=== PATIENT | male | born 1960 ===

== ENCOUNTER 2023-12-15 14:46 | Outpatient (CLI) | payer OTHER, SELFPAY ==
[2023-12-15 15:20] LABS: Basophils Absolute Auto 0.03 K/mm3 (0.00-0.10); Basophils Percent Auto 0.4 % (0.0-1.0); Eosinophils Absolute Auto 0.37 K/mm3 (0.02-0.50); Eosinophils Percent Auto 4.7 % (1.0-6.0); Hematocrit 41.6 % (40.0-54.0); Hemoglobin 13.4 g/dL (14.0-18.0); Immature Granulocyte Absolute 0.02 K/mm3 (0.00-0.00); Immature Granulocyte Percent A 0.3 % (0.0-0.0); Lymphocytes Absolute Auto 2.24 K/mm3 (1.10-4.50); Lymphocytes Percent Auto 28.4 % (18.0-42.0); Mean Corpuscular HGB Conc 32.2 g/dL (32.0-36.0); Mean Corpuscular Hemoglobin 29.7 pg (27.0-31.0); Mean Corpuscular Volume 92.2 fL (78.0-102.0); Mean Platelet Volume 9.2 fl (8.7-11.0); Monocytes Absolute Auto 0.74 K/mm3 (0.10-0.90); Monocytes Percent Auto 9.4 % (2.0-11.0); Neutrophils Absolute Auto 4.5 K/mm3 (1.7-7.2); Neutrophils Percent Auto 56.8 % (50.0-70.0); Platelet Count Result 314 K/mm3 (150-420); Red Blood Count 4.51 M/mm3 (4.70-6.10); Red Cell Distribution Width 12.2 % (11.6-14.4); White Blood Count 7.9 K/mm3 (4.8-10.8)
[2023-12-15 15:36] LABS: Alanine Aminotransferase 27 U/L (16-63); Albumin Level 3.7 g/dL (3.4-5.0); Alkaline Phosphatase 64 U/L (46-116); Anion Gap 9 mmol/L (8-16); Aspartate Amino Transferase 15 U/L (15-37); Bilirubin,Total 0.2 mg/dL (0.00-1.00); Blood Urea Nitrogen 19 mg/dL (7-18); Calcium 8.7 mg/dL (8.5-10.1); Carbon Dioxide 30 mmol/L (21-32); Chloride 103 mmol/L (98-108); Cholesterol 177 mg/dL (0-200); Estimated Glomerular Filt Rate > 60; Glucose 90 mg/dL (70-99); HDL Direct 68 mg/dL (40-60); LDL Cholesterol Calculated 95 mg/dL (<130); Osmolality Calculated 296 mOsm/kg (285-295); Potassium 4.1 mmol/L (3.5-5.1); Sodium 142 mmol/L (136-145); Total Protein 7.1 g/dL (6.4-8.2); Triglycerides 68 mg/dL (0-150)
== END 2023-12-15 14:47 | disposition home or self-care (01) ==
PROVIDERS: PCP Family Medicine; Visit Provider Family Medicine
DX: Z00.00 Encounter for general adult medical examination without abnormal findings (principal); E11.9 Type 2 diabetes mellitus without complications
CPT/HCPCS: 36415; 80053; 80061; 84443; 85025